=== PATIENT | female | born 1950 | race Caucasian/White ===

== ENCOUNTER 2020-03-30 09:54 | Outpatient (CLI) | payer MEDICARE, SELFPAY ==
--- NOTE | 2020-03-30 10:00 | XR_ITS ---
WS: [id number] LATERAL LUMBAR SPINE: 3 view. Lateral radiographs are performed in upright neutral, flexion and extension to the patient's toleranc e. HISTORY: LOW BACK PAIN COMPARISON: None available. Increase in the lumbar lordosis. Moderate disc space narrowing at L5-S1 with osteophytes. No fracture . With flexion and extension no instability. Mild facet joint arthritis at L4-5 and L5-S1. Moderate a therosclerosis aorta and iliac arteries. XR/XR lumbar spine f/e only [id number] IMPRESSION: 1. Moderate degenerative disc disease at L5-S1. 2. No lumbar spine instability.
--- NOTE | 2020-03-30 10:00 | MR_ITS ---
WS: [id number] MRI LUMBAR SPINE NONCONTRAST HISTORY: LOW BACK PAIN COMPARISON: None available. TECHNIQUE: Sagittal and axial multisequence imaging is submitted. Mild increase in the thoracic kyphosis. Mild spondylitic changes in the cervical spine. No cord compr ession. Mild increase in the lumbar lordosis. No acute fractures. There is a small amount of marrow edema in the RIGHT L5 pedicle and facet. Mild disc desiccation throughout the lumbar vertebral bodies. Slightly more disc space narrowing and degeneration at L5-S1. Conus terminates normally at mid L1. L1-L2: Normal. L2-L3: Mild facet and ligamentum flavum hypertrophy. No stenosis. L3-L4: Mild annular disc bulging with mild facet and ligamentum flavum arthritis. Nerve roots are bec oming clumped in the posterior thecal sac. L4-L5: Mild annular disc bulging and osteophytic ridging. Moderate ligamentum flavum hypertrophy and facet joint arthritis. There is mild encroachment into the thecal sac with mild central and subarticu lar recess stenosis. L5-S1: Mild annular disc bulging with a broad-based central and RIGHT paracentral disc protrusion. Di sc encroaches and abuts the RIGHT S1 nerve root. There is a small cyst associated with the LEFT L4-5 facet joint. MR/MR lumbar spine wo con* [id number] IMPRESSION: 1. Mild acute inflammatory changes in the RIGHT L4-5 facet joint with a small amount of marrow edema in the RIGHT L5 pedicle and lamina. 2. Mild central and subarticular recess stenosis at L4-5. 3. Broad-based central and RIGHT paracentral disc protrusion at L5-S1 with con tact on the RIGHT S1 nerve root.
== END 2020-03-30 09:55 | disposition home or self-care (01) ==
LOC: RADWPI 10:00
PROVIDERS: PCP Internal Medicine; Visit Provider Nurse Practitioner
DX: M51.37 Other intervertebral disc degeneration, lumbosacral region (principal); M48.061 Spinal stenosis, lumbar region without neurogenic claudication; M51.27 Other intervertebral disc displacement, lumbosacral region
CPT/HCPCS: 72120; 72148

== ENCOUNTER → 2020-11-11 08:26 | Outpatient (BNVA) | payer MEDICARE, SELFPAY | PROVIDERS: PCP Internal Medicine; Visit Provider Anesthesiology Pain Medicine | DX: M47.816 Spondylosis without myelopathy or radiculopathy, lumbar region (principal); M51.16 Intervertebral disc disorders with radiculopathy, lumbar region; M54.9 Dorsalgia, unspecified; M79.604 Pain in right leg; Z79.891 Long term (current) use of opiate analgesic | CPT/HCPCS: 99205 ==